=== PATIENT | female | born 1995 | race Caucasian/White ===

== ENCOUNTER 2019-06-23 15:45 | Emergency (ER) | payer SELFPAY ==
[2019-06-23] MEDS ORDERED: Azithromycin 250 MG TAB ONE (16:44)
[2019-06-23] MEDS ORDERED: Dexamethasone 4 MG TAB ONE (16:44)
[2019-06-23] MEDS ORDERED: HYDROcodone/Acetaminophen 5/325 mg Tablet ONE (16:44)
== END 2019-06-23 17:02 | disposition home or self-care (01) ==
LOC: MADERS 15:45
DX: J18.9 Pneumonia, unspecified organism (principal); J21.9 Acute bronchiolitis, unspecified; J45.909 Unspecified asthma, uncomplicated; F17.210 Nicotine dependence, cigarettes, uncomplicated; Z79.51 Long term (current) use of inhaled steroids
CPT/HCPCS: J7620; J8540